=== PATIENT | male | born 1990 | race Two or more races ===

== ENCOUNTER 2018-08-26 19:45 | Emergency (ER) | payer SELFPAY ==
[2018-08-26] MEDS ORDERED: SODIUM CHLORIDE 0.9% FLUSH 10 ML SOL IV PRN (19:49)
[2018-08-26 20:01] LABS: BASOPHILS % (AUTO) 1 % (0-3); EOSINOPHILS % (AUTO) 3 % (0-9); HEMATOCRIT 44 % (39-53); HEMOGLOBIN 15.2 gm/dl (13.5-17.7); LYMPHOCYTES % (AUTO) 22.9 % (10-50); MEAN CORPUSCULAR HEMOGLOBIN 29.6 pg (27.0-32.0); MEAN CORPUSCULAR HGB CONC 34.5 gm/dl (32.0-36.0); MEAN CORPUSCULAR VOLUME 86 fL (80-100); MONOCYTES % (AUTO) 8.5 % (0-12); NEUTROPHILS % (AUTO) 64.2 % (37-80)
[2018-08-26 20:15] LABS: INR 1.01 (0.86-1.12)
[2018-08-26 20:23] LABS: ALBUMIN 3.8 gm/dl (3.4-5.0); ALKALINE PHOSPHATASE 88 IU/L (46-116); ALT 103 IU/L (14-63); AST 42 IU/L (15-37); BILIRUBIN,TOTAL 0.2 mg/dl (0.2-1.0); BLOOD UREA NITROGEN 16 mg/dl (7-18); CALCIUM 8.2 mg/dl (8.5-10.1); CARBON DIOXIDE 23.2 mEq/L (21-32); CHLORIDE 106 mMol/L (98-107); CREATININE 0.94 mg/dl (0.80-1.30); GLUCOSE 111 mg/dl (74-106); POTASSIUM 3.7 mMol/L (3.5-5.1); SODIUM 140 mMol/L (136-145); TOTAL PROTEIN 7.4 gm/dl (6.4-8.2); TROP I < 0.017 ng/ml (0.000-0.056)
[2018-08-26 20:30] VITALS: RESP 16; TEMP 98.7
[2018-08-26 20:51] LABS: APPEARANCE,URINE Clear; BILIRUBIN,URINE NEGATIVE (NEGATIVE); COLOR,URINE Yellow; GLUCOSE, URINE (UA) NEGATIVE (NEGATIVE); KETONES,URINE NEGATIVE (NEGATIVE); LEUKOCYTE ESTERASE ,URINE NEGATIVE (NEGATIVE); NITRATE,URINE NEGATIVE (NEGATIVE); OCCULT BLOOD,URINE NEGATIVE (NEG-TRACE); PH,URINE 5.5; UROBILINOGEN,URINE 0.2 (0.2-1.0 EU)
[2018-08-26] MEDS ORDERED: APAP/HYDROCODONE 1 EACH TABLET PO ONE (20:58)
[2018-08-26] MEDS ORDERED: PREDNISONE 20 MG TAB PO ONE (20:59)
[2018-08-26 21:00] LABS: AMPHETAMINES NEGATIVE (NEGATIVE); BACTERIA TRACE (< 1+); BARBITUATES NEGATIVE (NEGATIVE); BENZODIAZEPINES NEGATIVE (NEGATIVE); CANNABINOL(THC) NEGATIVE (NEGATIVE); COCAINE(COC) NEGATIVE (NEGATIVE); CRYSTALS NEGATIVE (0-3 AVE/HPF); EPITHELIAL CELLS 0-1 (SQUAMOUS); METHADONE NEGATIVE (NEGATIVE); METHAMPHETAMINES NEGATIVE (NEGATIVE); OPIATES(OPI) NEGATIVE (NEGATIVE); OXYCODONE(OXY) NEGATIVE (NEGATIVE); PROPOXYPHENE(PPX) NEGATIVE (NEGATIVE); RBC,URINE NEGATIVE (0-3AV/HPF); TRICYCLIC ANTIDEPRESSANTS NEGATIVE (NEGATIVE); WBC,URINE 0-2 (0-5AV/HPF)
[2018-08-26] MEDS ORDERED: VALACYCLOVIR HYDROCHLORIDE 1 GM TAB PO SCH (21:00)
[2018-08-26] MEDS ORDERED: APAP/HYDROCODONE 1 EACH TABLET ONE (21:03)
[2018-08-26] MEDS ORDERED: PREDNISONE 20 MG TAB ONE (21:03)
[2018-08-26] MEDS ORDERED: SODIUM CHLORIDE 0.9% IV ONE ×2 (21:05→21:45)
[2018-08-26] MEDS ORDERED: ACYCLOVIR IV ONE ×2 (21:05→21:45)
[2018-08-26] MEDS ORDERED: TRANEXAMIC ACID 100 MG/ML SOL ONE (21:14)
[2018-08-26 22:36] VITALS: BP 118/76; PULSE 72; O2SAT 98
== END 2018-08-26 22:10 | disposition home or self-care (01) | DRG 74 ==
LOC: ED 19:45
DX: G51.0 Bell's palsy (principal); R40.2362 Coma scale, best motor response, obeys commands, at arrival to emergency department; R40.2142 Coma scale, eyes open, spontaneous, at arrival to emergency department; R40.2252 Coma scale, best verbal response, oriented, at arrival to emergency department; R29.701 NIHSS score 1
CPT/HCPCS: 36415; 70450; 80053; 80305; 81001; 84484; 85025; 85610; 85730; 93005; 99284; A9270-GY; J3490